=== PATIENT | female | born 1985 | race American Indian/Alaskan Native ===

== ENCOUNTER 2018-03-15 13:57 | Emergency (ER) | payer MEDICAID ==
[2018-03-15 15:34] LABS: Bilirubin,Urine NEG (Negative); Blood,Urine NEG (Negative); Color,Urine Yellow (Yellow); Mucus,Urine FEW /HPF; Protein,Urine <15 mg/dL mg/dL (Negative); Urobilinogen,Urine < 2.0 mg/dL (<2.0)
--- NOTE | 2018-03-15 17:29 | Ultrasound Report ---
FINAL REPORT EXAM: US OB > = 14 WEEKS FETUS HISTORY: pelvic pain/back pain with TECHNIQUE: Ultrasound evaluation of the gravid uterus PRIORS: None. FINDINGS: There is a single viable intrauterine with documented cardiac activity. Multiple ultrasound measurements are made to determine a composite gestational age. Nonspecific slight elevation of the cephalic index and HC/AC ratio. Otherwise, ratios are within normal limits. There is no evidence of placenta previa or abruption. The maternal cervix is closed. Nonspecific isoechoic smoothly marginated lesion is noted in the posterior uterine myometrium with maximum dimension of 5.0 cm. This may be a fibroid. The quantity of visualized amniotic fluid appears grossly normal. No sonographic abnormality in the visualized portion of the anatomy. Heart rate: 148 beats per minute position: Cephalic Placental position: Posterior fundal and left lateral Maternal cervix length: 3.3cm Estimated weight: 188 g Growth percentile by ultrasound: 52 Ultrasound estimated gestational age: 17 weeks 5 days Ultrasound estimated delivery date: 08/18/2018 LMP estimated gestational age: 17 weeks 1 day LMP estimated delivery date: 08/22/2018 IMPRESSION: Single viable intrauterine with the above parameters Nonspecific slight elevation of cephalic index and HC/AC ratio Smoothly marginated isoechoic 5 cm mass in the posterior uterine wall may be a fibroid
--- NOTE | 2018-03-15 21:15 | Emergency Department Report ---
HPI - General Chief Complaint: Abdominal Pain Time Seen by Provider: 03/15/18 20:24 - HPI HPI: 32-year-old female presents to the emergency department with the complaint of concern for the health of her fetus and some left lower back pain. The patient is currently about 17 weeks and . She is not having any vaginal bleeding or abdominal pain but says that she normally feels some type of heaviness in the abdomen and has not felt that for a few days and is concerned regarding the . She called her [employer], Dr. Austin at [facility], was told to go to the emergency department. She tried some Tylenol for her symptoms yesterday with some transient relief. The symptoms are intermittent. She denies any numbness, paresthesias, problems with bowel or bladder or any other neurological deficits. She has a history of diet controlled diabetes, diet controlled hypertension and migraine headaches. The back pain is left lower back and does not affect the midline spine. ED Past Medical Hx - Past Medical History Hx Hypertension: Yes (diet controlled) Hx Diabetes: Yes (diet controlled) Hx Headaches / Migraines: Yes - Surgical History Additional Surgical History: D&C for PSOD-2012 - Social History Smoking Status: Never Smoker Substance Use Type: None ED Review of Systems ROS: Stated complaint: 17WKS /STOMACH CRAMPS/NON MOVEMENT Other details as noted in HPI Comment: All other systems reviewed and negative Constitutional: denies: chills, fever Eyes: denies: eye pain, eye discharge, vision change ENT: denies: ear pain, throat pain Respiratory: denies: cough, shortness of breath, wheezing Cardiovascular: denies: chest pain, palpitations Gastrointestinal: denies: abdominal pain, nausea, diarrhea Genitourinary: denies: urgency, dysuria, discharge Musculoskeletal: back pain. denies: arthralgia Skin: denies: rash, lesions Neurological: denies: headache, weakness Physical Exam - Physical Exam Vital Signs: Vital Signs 03/15/18 14:12 Temperature 98.4 F Pulse Rate 103 H Respiratory 18 Rate Blood Pressure 126/82 O2 Sat by Pulse 100 Oximetry Physical Exam: GENERAL: The patient is well-developed well-nourished. HENT: Normocephalic. Atraumatic. Patient has moist mucous membranes. EYES: Extraocular motions are intact. NECK: Supple. Trachea is midline. CHEST/LUNGS: Clear to auscultation. There is no respiratory distress noted. HEART/CARDIOVASCULAR: Regular. There is no tachycardia. There is no murmur. ABDOMEN: Abdomen is soft, nontender. Patient has normal bowel sounds. SKIN: Skin is warm and dry. NEURO: The patient is awake, alert, and oriented. The patient is cooperative. The patient has no focal neurologic deficits. The patient has normal speech. MUSCULOSKELETAL: There is no tenderness or deformity. There is no limitation range of motion. There is no evidence of acute injury. BACK: No midline thoracic or lumbar tenderness to palpation, step-off or deformity. There is some reproducible left lower lumbar paraspinal back pain to palpation. ED Course Vital Signs 03/15/18 14:12 Temperature 98.4 F Pulse Rate 103 H Respiratory 18 Rate Blood Pressure 126/82 O2 Sat by Pulse 100 Oximetry ED Medical Decision Making - Radiology Data Radiology results: report reviewed EXAM: US OB gt; = 14 WEEKS FETUS HISTORY: pelvic pain/back pain with TECHNIQUE: Ultrasound evaluation of the gravid uterus PRIORS: None. FINDINGS: There is a single viable intrauterine with documented cardiac activity. Multiple ultrasound measurements are made to determine a composite gestational age. Nonspecific slight elevation of the cephalic index and HC/AC ratio. Otherwise, ratios are within normal limits. There is no evidence of placenta previa or abruption. The maternal cervix is closed. Nonspecific isoechoic smoothly marginated lesion is noted in the posterior uterine myometrium with maximum dimension of 5.0 cm. This may be a fibroid. The quantity of visualized amniotic fluid appears grossly normal. No sonographic abnormality in the visualized portion of the anatomy. Heart rate: 148 beats per minute position: Cephalic Placental position: Posterior fundal and left lateral Maternal cervix length: 3.3cm Estimated weight: 188 g Growth percentile by ultrasound: 52 Ultrasound estimated gestational age: 17 weeks 5 days Ultrasound estimated delivery date: 08/18/2018 LMP estimated gestational age: 17 weeks 1 day LMP estimated delivery date: 08/22/2018 IMPRESSION: Single viable intrauterine with the above parameters Nonspecific slight elevation of cephalic index and HC/AC ratio Smoothly marginated isoechoic 5 cm mass in the posterior uterine wall may be a fibroid Transcribed By: LARS Dictated By: AMY DESOUZA MD Electronically Authenticated By: AMY DESOUZA MD Signed Date/Time: 03/15/18 0077 - Medical Decision Making This patient came in because she was concerned that there could've been some type of demise as she says that her abdomen feels different than usual, although not painful. No vaginal bleeding, dysuria or discharge. An ultrasound was done that shows a single viable intrauterine at about 17 weeks. There is a possible small to moderate sized fibroid to the posterior uterine wall. Urinalysis did not show any signs of urinary tract infection or hematuria. The patient has good follow-up with [employer] and has been instructed to continue with her vitamins. Patient's back pain is lower left. She has no midline thoracic or lumbar spinal tenderness or deformity. The back pain is mostly reproducible and it does not radiate anywhere. Since there is no hematuria and no urinary tract infection, the patient is lower suspicion for pyelonephritis and/or nephrolithiasis. She does not appear to have any of the emergent back conditions such as cauda equina, epidural abscess or cord compression syndrome. There is no paresthesias, numbness, problems with bowel or bladder or any other neurological deficits. She will return to the ER with any worsening of her symptoms or any acute distress. - Differential Diagnosis , miscarriage, UTI, nephrolithiasis Critical Care Time: No Critical care attestation.: If time is entered above; I have spent that time in minutes in the direct care of this critically ill patient, excluding procedure time. ED Disposition Clinical Impression: Qualifiers: Weeks of gestation: 17 weeks Qualified Code(s): Z3A.17 - 17 weeks gestation of Back pain Qualifiers: Back pain location: low back pain Chronicity: unspecified Back pain laterality : left Sciatica presence: without sciatica Qualified Code(s): M54.5 - Low back pain Disposition: DC-01 TO HOME OR SELFCARE Is pt being admited?: No Condition: Stable Instructions: (ED), Back Pain (ED) Additional Instructions: Please follow-up with your primary care physician and [employer]. Return to the emergency Department with any worsening of your symptoms, development of vaginal bleeding or abdominal pain, or with any acute distress. You can take Tylenol every 4 hours, using weight-based dosing, as needed for pain/discomfort. Continue with your vitamins. Referrals: ISIDRO AUSTIN MD [Referring] - 2-3 Days PRIMARY CARE, [Primary Care Provider] - 2-3 Days Forms: Work/School Release Form(ED) Time of Disposition: 21:15
[2018-03-15 21:30] VITALS: BP 122/76
== END 2018-03-15 21:30 | disposition home or self-care (01) ==
LOC: ED 13:57
DX: O26.892 Other specified pregnancy related conditions, second trimester (principal); M54.5 Low back pain; Z3A.17 17 weeks gestation of pregnancy; Z88.8 Allergy status to other drugs, medicaments and biological substances; O24.912 Unspecified diabetes mellitus in pregnancy, second trimester; O16.2 Unspecified maternal hypertension, second trimester; O99.352 Diseases of the nervous system complicating pregnancy, second trimester; G43.909 Migraine, unspecified, not intractable, without status migrainosus
CPT/HCPCS: 36415; 76805; 81001; 84702